=== PATIENT | female | born 1940 | race Caucasian/White ===

== ENCOUNTER → 2017-09-07 | Outpatient (CLI) | payer MEDICARE ==
[~2017-09-07] MED LIST: ALBU8.5H8 IH; AMOX875T2 PO; ATEN50TA PO; AZAT50TA PO; CLIN300C9 PO; DENO60DI SQ; GABA-531 PO; LACT1CAP58 PO; LOSA1TAB12 PO; PRED20TA3 PO; PYRI60TA PO; TORS5TAB12 PO; TRAM50TA4 PO
== END | disposition home or self-care (01) ==
LOC: OIH 09:22
PROVIDERS: ATTEND Family Medicine
DX: K44.9 Diaphragmatic hernia without obstruction or gangrene (principal); K57.90 Diverticulosis of intestine, part unspecified, without perforation or abscess without bleeding; M47.895 Other spondylosis, thoracolumbar region; Z90.49 Acquired absence of other specified parts of digestive tract
CPT/HCPCS: 74150

== ENCOUNTER → 2018-08-09 | Outpatient (CLI) | payer MEDICARE | END | disposition home or self-care (01) | LOC: OIH 13:52 | PROVIDERS: ATTEND Family Medicine | DX: R06.00 Dyspnea, unspecified (principal); R05 Cough; M47.816 Spondylosis without myelopathy or radiculopathy, lumbar region | CPT/HCPCS: 71046 ==

== ENCOUNTER → 2018-09-20 | Outpatient (CLI) | payer MEDICARE ==
[~2018-09-20] MED LIST changes: +ALPR0.25 PO; +APIX5TAB PO; +DILT240C46 PO; +FURO20TA4 PO; +IRON PO; +MVI PO; +PANT40TA25 PO
== END | disposition home or self-care (01) ==
LOC: SHCH 13:33
PROVIDERS: ATTEND Internal Medicine Cardiovascular Disease
DX: I65.23 Occlusion and stenosis of bilateral carotid arteries (principal)
CPT/HCPCS: 93880

== ENCOUNTER 2019-01-01 07:57 | Observation (INO) | payer MEDICARE ==
[2018-12-29 08:41] VITALS: BP 174/56
[2018-12-29 08:53] LABS: BASOPHILS % (AUTO) 1.3 % (0.0-5.0); EOSINOPHILS % (AUTO) 3.4 % (0.0-8.0); HEMATOCRIT 35.4 % (36-48); LYMPHOCYTES % (AUTO) 15.7 % (21.0-51.0); MEAN CORPUSCULAR HEMOGLOBIN 30.3 pg (27.0-33.0); MEAN CORPUSCULAR HGB CONC 32.8 g/dL (32.0-36.0); MEAN CORPUSCULAR VOLUME 92.4 fL (79-99); MONOCYTES % (AUTO) 10.9 % (3.0-13.0); NEUTROPHILS % (AUTO) 68.7 % (40.0-77.0); PLATELET COUNT (AUTO) 179 K/uL (130-400); RED BLOOD CELL COUNT(AUTO) 3.83 MIL/uL (4.00-5.50); WHITE BLOOD COUNT (AUTO) 7.2 K/uL (4.8-10.8)
[2018-12-29 09:01] LABS: CREATININE 1.1 mg/dL (0.5-1.5); POTASSIUM 3.9 mmol/L (3.5-5.1)
--- NOTE | 2018-12-29 09:10 | NUR ---
PER PATIENT SHE IS CONCERNED FOR ANESTHESIA BEING USED DUE TO MIASTINA GRAVIS AND CALLED PAYAL OLIVER OF DR. HAWKINS. PER PAYAL OLIVER. LOCAL ANESTHESIA WILL BE USED. PT IS ALLERGIC TO LIDOCAINE PER ISAMEL THEY WILL USE ANOTHER MEDICATION FOR PROCEDURE. ELIQUIS WAS PUT ON HOLD FOR 48 HOURS PRIOR TO PROCEDURE PER PAYAL OLIVER. PT WAS INFORMED SHE VERBALIZED UNDERSTANDING.
[2018-12-29 09:18] LABS: INR 0.98 (0.85-1.15); PARTIAL THROMBOPLASTIN TIME 28.8 SEC (26.3-35.5); PROTHROMBIN TIME 10.3 SEC (9.6-11.6)
[~2019-01-01] VITALS: Ht 154.9 cm; Wt 106.7 kg
[2019-01-01] VITALS (25 sets, daily range): BP systolic 109–168; BP diastolic 45–75
[~2019-01-01 07:57] MED LIST changes: -ALBU8.5H8 IH; -AMOX875T2 PO; +APIX2.5T PO; -ATEN50TA PO; -AZAT50TA PO; -CLIN300C9 PO; -DENO60DI SQ; -GABA-531 PO; -IRON PO; -LACT1CAP58 PO; +LISI-617 PO; -LOSA1TAB12 PO; +MAGN400T25 PO; +METO-391 PO; +OMEGA OIL PO; -PRED20TA3 PO; -TORS5TAB12 PO; -TRAM50TA4 PO; +UBID100C10 PO; +[UNRECOGNIZED DRUG - OTHER] PO
[2019-01-01] MEDS ORDERED: SODIUM CHLORIDE 0.9% 1000ML 1,000 ML IV ONE (08:05)
[2019-01-01] MEDS ORDERED: APIX5TAB PO (08:31)
[2019-01-01] MEDS ORDERED: PYRI60TA PO (08:31)
[2019-01-01] MEDS ORDERED: CA/D1TAB3 PO (08:33)
--- NOTE | 2019-01-01 12:30 | NUR ---
ANESTHESIA DR. CALVO AND DR. Umer HAWKINS CAME TO EVALUATE PATIENT BEFORE PROCEDURE DUE TO COMPLICATIONS ALLERGIES TO LIDOCAINE, DUE TO PTS MYASTHENIA GRAVIS SENSITIVE TO ANY TYPE OF SEDATION OR ANESTHESIA.
[2019-01-01] MEDS ORDERED: BUPIVACAINE/PF 0.25% 30ML VIAL IJ ONE (12:39)
[2019-01-01] MEDS ORDERED: MEPERIDINE-PF 25 MG/ML SYG ONE (12:39)
[2019-01-01] MEDS ORDERED: MIDAZOLAM HCL 1 MG/ML 2ML VIAL ONE (12:39)
[2019-01-01] MEDS ORDERED: CEFAZOLIN SODIUM 1 GM VIAL ONE (12:39)
[2019-01-01] MEDS ORDERED: LIDOCAINE HCL 1% MDV 50ML VIAL ONE (12:40)
--- NOTE | 2019-01-01 12:45 | NUR ---
PROCEDURE PT TAKEN TO SINTER PRESS OPERATOR FOR PROCEDURE. PT AWAKE AND ALERT , FAMILY AT BEDSIDE.
[2019-01-01] MEDS ORDERED: PROPOFOL 1000 MG/100 ML 100 ML IV ONE (12:46)
[2019-01-01] MEDS ORDERED: FENTANYL CITRATE PF 50 MCG/1 ML 5ML AMP IV ONE (12:48)
[2019-01-01] MEDS ORDERED: MIDAZOLAM HCL 1 MG/ML 5ML VIAL ONE (12:48)
[2019-01-01] MEDS ORDERED: OCTYL 2-CYANOACRYLATE 1 EACH TP ONE (14:05)
[2019-01-01] MEDS ORDERED: ACETAMINOPHEN-CODEINE 300/30MG TAB PO PRN (14:30)
[2019-01-01] MEDS ORDERED: ALPRAZOLAM 0.25 MG TABLET PO PRN (14:30)
[2019-01-01] MEDS: ACETAMINOPHEN-CODEINE 300/30MG TAB PO PRN ×2 (18:15→23:57)
--- NOTE | 2019-01-01 18:15 | NUR ---
LATE ENTRY GAVE REPORT TO JAE BULL FROM 2ND FLOOR, NO CONCERNS VOICED
[2019-01-01] MEDS ORDERED: ACETAMINOPHEN 325 MG TAB PO PRN ×2 (19:15)
[2019-01-01] MEDS ORDERED: NITROGLYCERIN 0.4 MG SL TAB SL PRN (19:15)
[2019-01-01] MEDS: METOPROLOL TARTRATE 25 MG TAB PO SCH (21:51)
[2019-01-01] MEDS: CEFAZOLIN SODIUM 1 GM VIAL IVP SCH (21:51)
[2019-01-01] MEDS: PYRIDOSTIGMINE BROMIDE 60 MG TABLET PO SCH (21:51)
[2019-01-02] VITALS (8 sets, daily range): BP systolic 122–154; BP diastolic 58–80
--- NOTE | 2019-01-02 02:00 | NUR ---
PATIENT C/O NAUSEA X1. MEDICATED WITH ZOFRAN. DRESSING TO LEFT UPPER CHEST, CDI. PATIENT PACING IN 60S
[2019-01-02 03:53] LABS: BASOPHILS % (AUTO) 0.7 % (0.0-5.0); EOSINOPHILS % (AUTO) 2.5 % (0.0-8.0); HEMATOCRIT 31.7 % (36-48); MEAN CORPUSCULAR HEMOGLOBIN 30.9 pg (27.0-33.0); MEAN CORPUSCULAR HGB CONC 33.8 g/dL (32.0-36.0); MEAN CORPUSCULAR VOLUME 91.4 fL (79-99); MONOCYTES % (AUTO) 12.4 % (3.0-13.0); NEUTROPHILS % (AUTO) 69.4 % (40.0-77.0); PLATELET COUNT (AUTO) 161 K/uL (130-400); RED BLOOD CELL COUNT(AUTO) 3.47 MIL/uL (4.00-5.50); RED CELL DISTRIBUTION WIDTH 14.2 % (11.0-15.5)
[2019-01-02] MEDS: PYRIDOSTIGMINE BROMIDE 60 MG TABLET PO SCH ×4 (04:17→22:02)
[2019-01-02] MEDS: CEFAZOLIN SODIUM 1 GM VIAL IVP SCH (04:17)
[2019-01-02 04:18] LABS: ALBUMIN 2.8 g/dL (3.5-5.0); BILIRUBIN,TOTAL 0.5 mg/dL (0.2-1.0); MAGNESIUM 1.9 mg/dL (1.80-2.40); POTASSIUM 4.2 mmol/L (3.5-5.1); TOTAL PROTEIN, SERUM 6.4 g/dL (6.0-8.3)
[2019-01-02] MEDS: ACETAMINOPHEN-CODEINE 300/30MG TAB PO PRN (06:16)
--- NOTE | 2019-01-02 06:27 | NUR ---
PATIENT BEDREST UNTIL 629. LEFT ARM IN SLING. C/O PAIN TO SITE. MEDICATED WITH ORDERED PAIN MEDS X2. NO HEMATOMA TO SITE. SENSATION INTACT. RADIAL PULSES PALPABLE.
[2019-01-02] MEDS ORDERED: MULTIVITAMIN TABLET PO SCH (08:00)
[2019-01-02] MEDS: ONDANSETRON HCL 4 MG/2 ML VIAL IV PRN ×2 (08:02→17:38)
[2019-01-02] MEDS: PANTOPRAZOLE SODIUM 40 MG TABLET.DR PO SCH (08:09)
--- NOTE | 2019-01-02 08:38 | NUR ---
MRS WANG IS NAUSEATED AND VOMITING. I HAVE GIVEN HER ZOFRAN AND PROTONIX. WILL OBSERVE. PLACEDC BACK IN BED PER HER REQUEST. CXR DONE
[2019-01-02] MEDS ORDERED: DILTIAZEM HCL 120 MG CAP.SR.24H PO SCH (09:00)
--- NOTE | 2019-01-02 09:09 | NUR ---
EVE Muhammad met with pt who lives with her [phone]. Pt reports prior to admit she was independent of ADLS, uses walker, drives, no HH services. Seen by Dr Lima and has rx coverage. Pt denies dc needs. Plan is home at [place] Addendum: 01/02/19 at 0911 by JENNIE SHAFFER Amended: Links added.
[2019-01-02] MEDS: LISINOPRIL 5 MG TABLET PO SCH ×2 (09:22→16:10)
[2019-01-02] MEDS: METOPROLOL TARTRATE 25 MG TAB PO SCH ×2 (09:22→22:02)
--- NOTE | 2019-01-02 11:30 | NUR ---
PT HAS BEEN SEEN BY DR MEJÍA AND ESSENTIALLY CLEARED FOR DISCHARGE IF HER NAUSEA AND UPSET STOMACHE RESOLVES. IF NOT BETTER I WILL CALL DR LOCKETT
[2019-01-02] MEDS ORDERED: METHYLPREDNISOLONE SOD SUCC 125MG/2ML VIAL IVP SCH (12:45)
--- NOTE | 2019-01-02 12:45 | NUR ---
PT CONTINUES WITH GI DISTRESS- DR LOCKETT CALLED. WILL HOLD DC HOME FOR NOW. REFER TO ORDERS
[2019-01-02] MEDS ORDERED: MAGNESIUM OXIDE 400 MG TABLET PO SCH (16:00)
[2019-01-02] MEDS ORDERED: [UNRECOGNIZED DRUG - OTHER] PO SCH (16:00)
[2019-01-02] MEDS ORDERED: ***HM***(Ubidecarenone (Coq-10) 100 MG) PO SCH (16:00)
[2019-01-02] MEDS ORDERED: CALCIUM 600 + VITAMIN D 400 TABLET PO SCH (16:00)
--- NOTE | 2019-01-02 17:43 | NUR ---
PT CONTINUES WITH N/V X 1 -MOSTLY HER DINNER
--- NOTE | 2019-01-02 18:47 | NUR ---
IV TO LEFT HAND IS SMALL CALIBER AND IS PAINFUL WHEN FLUSHED. NO EDEMA OR SWELLING WHEN FLUSHED WITH NS. PT REFUSES RESTART
--- NOTE | 2019-01-02 19:20 | NUR ---
HAND OFF REPORT GIVEN TO ABRAN BULL
[2019-01-02] MEDS ORDERED: APIXABAN 2.5 MG TABLET PO SCH (21:00)
[2019-01-03] MEDS: ONDANSETRON HCL 4 MG/2 ML VIAL IV PRN (01:46)
[2019-01-03] MEDS: PYRIDOSTIGMINE BROMIDE 60 MG TABLET PO SCH (04:00)
--- NOTE | 2019-01-03 04:11 | NUR ---
PATIENT REFUSED 0400 [address]
[2019-01-03 04:33] VITALS: BP 135/59
--- NOTE | 2019-01-03 06:30 | NUR ---
D/C per Dr Lima
[2019-01-03] MEDS: PANTOPRAZOLE SODIUM 40 MG TABLET.DR PO SCH (06:49)
[2019-01-03 07:00] VITALS: BP 159/68
[2019-01-03] MEDS ORDERED: APIXABAN 5 MG TABLET PO SCH (07:30)
--- NOTE | 2019-01-03 08:00 | NUR ---
DISCHARGE PT AMBULATING AROUND ROOM, DENIES PAIN, SOB, NAUSEA. LEFT SHOULDER DRESSING DRY, INTACT AND SECURED WITH ARM SLING, GAIT STEADY AND STRONG WITH STAND BY ASSIST, PIV REMOVED AND INTACT, DISCHARGED HOME TO FAMILY VEHICLE VIA WHEELCHAIR.
[2019-01-03] MEDS ORDERED: FUROSEMIDE 20 MG TABLET PO SCH (09:00)
== END 2019-01-03 08:05 | disposition home or self-care (01) ==
LOC: DAH 07:57 → DAHIP 07:58 → 2DH 18:15
PROVIDERS: ADMIT Internal Medicine; ATTEND Internal Medicine
DX: I49.5 Sick sinus syndrome (principal); I10 Essential (primary) hypertension; I48.0 Paroxysmal atrial fibrillation; G70.00 Myasthenia gravis without (acute) exacerbation; I35.0 Nonrheumatic aortic (valve) stenosis; I44.0 Atrioventricular block, first degree; K21.9 Gastro-esophageal reflux disease without esophagitis; I25.10 Atherosclerotic heart disease of native coronary artery without angina pectoris; Z79.01 Long term (current) use of anticoagulants; Z82.0 Family history of epilepsy and other diseases of the nervous system; Z82.49 Family history of ischemic heart disease and other diseases of the circulatory system; Z83.2 Family history of diseases of the blood and blood-forming organs and certain disorders involving the immune mechanism; Z95.0 Presence of cardiac pacemaker; Z96.643 Presence of artificial hip joint, bilateral; Z96.651 Presence of right artificial knee joint
CPT/HCPCS: 33208; 36415 ×2; 71045; 80048; 80053; 83735; 85025 ×2; 85610; 85730; 93005 ×2; 96374; 96375; 96376 ×2; A4606; C1785; C1894; C1898 ×2; G0378 ×25; J0690 ×3; J2250; J2405 ×3; J2704; J2930; J3010; J3490 ×2; J7030; J2175

== ENCOUNTER 2019-05-23 07:33 | Emergency (ER) | payer MEDICARE ==
[~2019-05-23 07:33] MED LIST changes: -APIX2.5T PO; +CA/D1TAB3 PO
[2019-05-23 08:02] LABS: BASOPHILS % (AUTO) 0.9 % (0.0-5.0); EOSINOPHILS % (AUTO) 2.7 % (0.0-8.0); LYMPHOCYTES % (AUTO) 28.3 % (21.0-51.0); MEAN CORPUSCULAR HEMOGLOBIN 31.2 pg (27.0-33.0); MEAN CORPUSCULAR HGB CONC 33.4 g/dL (32.0-36.0); MEAN CORPUSCULAR VOLUME 93.3 fL (79-99); MONOCYTES % (AUTO) 11.8 % (3.0-13.0); NEUTROPHILS % (AUTO) 56.3 % (40.0-77.0); PLATELET COUNT (AUTO) 198 K/uL (130-400); RED BLOOD CELL COUNT(AUTO) 4.07 MIL/uL (4.00-5.50); RED CELL DISTRIBUTION WIDTH 12.8 % (11.0-15.5); WHITE BLOOD COUNT (AUTO) 7.2 K/uL (4.8-10.8)
[2019-05-23] MEDS ORDERED: ALBUTEROL SULFATE 0.083% 2.5 MG/3 ML INH IH ONE (08:03)
[2019-05-23 08:07] LABS: CREATININE 1.1 mg/dL (0.5-1.5); POTASSIUM 4.5 mmol/L (3.5-5.1)
[2019-05-23 08:14] LABS: ALBUMIN 3.4 g/dL (3.5-5.0); BILIRUBIN,TOTAL 0.5 mg/dL (0.2-1.0); TOTAL PROTEIN, SERUM 7.7 g/dL (6.0-8.3)
[2019-05-23 08:24] LABS: INR 0.98 (0.85-1.15); PARTIAL THROMBOPLASTIN TIME 25.2 SEC (26.3-35.5); PROTHROMBIN TIME 10.3 SEC (9.6-11.6)
[2019-05-23 08:36] LABS: B-TYPE NATRIURETIC PEPTIDE 345 pg/mL (0-100)
[2019-05-23] MEDS ORDERED: FUROSEMIDE 10 MG/ML 2ML VIAL ONE (08:50)
[2019-05-23] MEDS ORDERED: ASPIRIN 325 MG TABLET ONE (11:18)
[2019-05-23] MEDS ORDERED: MORPHINE SULFATE 4 MG/1ML SYG ONE (12:03)
[2019-05-23] MEDS ORDERED: ONDANSETRON HCL 4 MG/2 ML VIAL ONE (13:30)
[2019-05-23] MEDS ORDERED: SODIUM CHLORIDE 0.9% 50 ML IV ONE (13:51)
== END 2019-05-23 15:12 | disposition home or self-care (01) ==
LOC: EDH 07:33
DX: G70.00 Myasthenia gravis without (acute) exacerbation (principal); I10 Essential (primary) hypertension; R06.02 Shortness of breath; I48.91 Unspecified atrial fibrillation; Z88.1 Allergy status to other antibiotic agents; Z88.8 Allergy status to other drugs, medicaments and biological substances
CPT/HCPCS: 36415; 71045; 71275; 80053; 82550; 83880 ×2; 84484; 85025; 85378; 85610; 85730; 93005; 93970; 94640; 96374; 96375; 99285; J1940; J2270; J2405

== ENCOUNTER → 2019-07-18 | Outpatient (CLI) | payer MEDICARE | END | disposition home or self-care (01) | LOC: SHCH 07-10 14:21 → RAH 08:30 | PROVIDERS: ATTEND Internal Medicine Cardiovascular Disease | DX: I08.3 Combined rheumatic disorders of mitral, aortic and tricuspid valves (principal); I49.5 Sick sinus syndrome | CPT/HCPCS: 93306 ==

== ENCOUNTER 2019-09-04 09:58 | Emergency (ER) | payer MEDICARE ==
[2019-09-04 11:05] LABS: BASOPHILS % (AUTO) 0.7 % (0.0-5.0); CREATININE 1.1 mg/dL (0.5-1.5); EOSINOPHILS % (AUTO) 1.5 % (0.0-8.0); HEMATOCRIT 35.8 % (36-48); LYMPHOCYTES % (AUTO) 17.2 % (21.0-51.0); MEAN CORPUSCULAR HEMOGLOBIN 30.3 pg (27.0-33.0); MEAN CORPUSCULAR HGB CONC 32.1 g/dL (32.0-36.0); MEAN CORPUSCULAR VOLUME 94.2 fL (79-99); MONOCYTES % (AUTO) 10.7 % (3.0-13.0); NEUTROPHILS % (AUTO) 69.6 % (40.0-77.0); PLATELET COUNT (AUTO) 193 K/uL (130-400); POTASSIUM 4.1 mmol/L (3.5-5.1); RED CELL DISTRIBUTION WIDTH 12.9 % (11.0-15.5); WHITE BLOOD COUNT (AUTO) 6.1 K/uL (4.8-10.8)
[2019-09-04 11:10] LABS: ALBUMIN 3.9 g/dL (3.5-5.0); BILIRUBIN,TOTAL 0.4 mg/dL (0.2-1.0); TOTAL PROTEIN, SERUM 7.7 g/dL (6.0-8.3)
[2019-09-04 11:38] LABS: B-TYPE NATRIURETIC PEPTIDE 289 pg/mL (0-100)
== END 2019-09-04 14:10 | disposition home or self-care (01) ==
LOC: EDH 09:58
DX: I11.0 Hypertensive heart disease with heart failure (principal); I50.20 Unspecified systolic (congestive) heart failure; R06.00 Dyspnea, unspecified; I48.91 Unspecified atrial fibrillation; Z85.828 Personal history of other malignant neoplasm of skin; Z88.1 Allergy status to other antibiotic agents; Z88.8 Allergy status to other drugs, medicaments and biological substances; Z90.49 Acquired absence of other specified parts of digestive tract; Z90.710 Acquired absence of both cervix and uterus; Z87.891 Personal history of nicotine dependence; Z96.643 Presence of artificial hip joint, bilateral
CPT/HCPCS: 36415; 71045; 80053; 83880; 84484; 85025; 93005

== ENCOUNTER 2019-10-10 06:23 | Day surgery (SDC) | payer MEDICARE ==
[2019-10-04 09:55] LABS: BASOPHILS % (AUTO) 0.8 % (0.0-5.0); EOSINOPHILS % (AUTO) 1.8 % (0.0-8.0); LYMPHOCYTES % (AUTO) 19.4 % (21.0-51.0); MEAN CORPUSCULAR HEMOGLOBIN 29.8 pg (27.0-33.0); MEAN CORPUSCULAR HGB CONC 31.1 g/dL (32.0-36.0); MEAN CORPUSCULAR VOLUME 95.9 fL (79-99); MONOCYTES % (AUTO) 10.7 % (3.0-13.0); NEUTROPHILS % (AUTO) 66.9 % (40.0-77.0); PLATELET COUNT (AUTO) 220 K/uL (130-400); RED BLOOD CELL COUNT(AUTO) 3.86 MIL/uL (4.00-5.50); RED CELL DISTRIBUTION WIDTH 13.4 % (11.0-15.5); WHITE BLOOD COUNT (AUTO) 7.6 K/uL (4.8-10.8)
[2019-10-04 10:08] LABS: INR 1.07 (0.85-1.15); PARTIAL THROMBOPLASTIN TIME 28.5 SEC (26.3-35.5); PROTHROMBIN TIME 11.2 SEC (9.6-11.6)
[2019-10-04 10:10] LABS: CREATININE 1.2 mg/dL (0.5-1.5); POTASSIUM 4.3 mmol/L (3.5-5.1)
[2019-10-04 10:18] VITALS: BP 147/68
[~2019-10-10] VITALS: Ht 157.5 cm; Wt 107.2 kg
[~2019-10-10 06:23] MED LIST changes: -ALPR0.25 PO; +AMIODARONE; -LISI-617 PO; -MAGN400T25 PO; -PANT40TA25 PO; +PANT40TA54 PO
[2019-10-10] MEDS ORDERED: SODIUM CHLORIDE 0.9% 1000ML 1,000 ML IV ONE (06:39)
[2019-10-10 06:40] VITALS: BP 134/72
--- NOTE | 2019-10-10 06:40 | NUR ---
PRE PROCEDURE PT ARRIVED VIA W/C, FRIEND AT SIDE. NO DISTRESS NOTED. PT MADE COMFORTABLE IN BED AND CONNECTED TO IDENTITY ACCESS MANAGEMENT ARCHITECT. PT CALL LIGHT WITHIN REACH AND BED IN LOWEST POSITION. PT INSTRUCTED TO CALL FOR ASSISTANCE Addendum: 10/10/19 at 0821 by BHUPINDER ADAMES RN RN PT HAS HEART MURMUR AND C/O NASAL DRAINAGE
--- NOTE | 2019-10-10 08:00 | NUR ---
ANESTHESIA ANESTHESIA HERE TO TOSHIA PT. COLEEN JAVED REVIEWED EKG AND WAS INFORMED OF LIDOCAINE ALLERGY. PER PT SHE IS NOT ALLERGIC TO LIDO BUT DOES NOT TAKE DUE TO MYASTHENIA GRAVIS. WILL WAIT FOR MD TO TOSHIA EKG
[2019-10-10] MEDS ORDERED: PROPOFOL 10 MG/ML 20ML VIAL IV ONE (08:11)
[2019-10-10] MEDS ORDERED: EPINEPHRINE 1 MG/ML AMPULE ONE (08:11)
[2019-10-10] MEDS ORDERED: ATROPINE SULFATE 0.1 MG/ML 10 ML SYG IVP ONE (08:11)
[2019-10-10] MEDS ORDERED: EPHEDRINE SULFATE 50 MG/ML AMPULE ONE (08:11)
[2019-10-10] MEDS ORDERED: LIDOCAINE HCL 2% VISCOUS 15 ML UDCUP ONE (09:20)
--- NOTE | 2019-10-10 09:28 | NUR ---
reeval dr coyne in to see pt. after reviewing ekg and eval pt the procedure was cancelled. pt converted to sinus rhythm and pt to continue home meds and follow up with caleb colindres at dr underwood office as scheduled. pt and relative voiced understanding
[2019-10-10 09:41] VITALS: BP 145/71
--- NOTE | 2019-10-10 09:55 | NUR ---
discharge pt taken out by lala mckeon rn via w/c in no distress.
== END 2019-10-10 09:55 | disposition home or self-care (01) ==
LOC: DAH 06:23
PROVIDERS: ATTEND Internal Medicine Cardiovascular Disease
DX: I48.19 Other persistent atrial fibrillation (principal); Z53.8 Procedure and treatment not carried out for other reasons; I44.7 Left bundle-branch block, unspecified; I10 Essential (primary) hypertension; G70.00 Myasthenia gravis without (acute) exacerbation; M06.9 Rheumatoid arthritis, unspecified; K21.9 Gastro-esophageal reflux disease without esophagitis; Z88.8 Allergy status to other drugs, medicaments and biological substances; Z88.1 Allergy status to other antibiotic agents; Z96.643 Presence of artificial hip joint, bilateral; Z96.651 Presence of right artificial knee joint; Z95.0 Presence of cardiac pacemaker; Z98.890 Other specified postprocedural states; Z91.048 Other nonmedicinal substance allergy status; Z79.899 Other long term (current) drug therapy; Z79.01 Long term (current) use of anticoagulants; Z82.49 Family history of ischemic heart disease and other diseases of the circulatory system
CPT/HCPCS: 36415; 80048; 85025; 85610; 85730; 93005; A4215; A4221; A4222; A4223 ×3; A4606; A4663; J0171; J0461; J2704; J3490; J7030

== ENCOUNTER → 2020-05-05 | Outpatient (CLI) | payer MEDICARE ==
[~2020-05-05] MED LIST changes: +ALBUTEROL SULFATE 0.083% 2.5 MG/3 ML INH IH ONE
== END | disposition home or self-care (01) ==
LOC: RESP 13:02
PROVIDERS: ATTEND Internal Medicine
DX: J44.9 Chronic obstructive pulmonary disease, unspecified (principal)
CPT/HCPCS: 94060; 94727; 94729

== ENCOUNTER → 2020-05-07 | Outpatient (CLI) | payer MEDICARE ==
[~2020-05-07] MED LIST changes: -ALBUTEROL SULFATE 0.083% 2.5 MG/3 ML INH IH ONE
== END | disposition home or self-care (01) ==
LOC: OIH 13:40
PROVIDERS: ATTEND Internal Medicine
DX: J44.9 Chronic obstructive pulmonary disease, unspecified (principal); R91.8 Other nonspecific abnormal finding of lung field
CPT/HCPCS: 71046

== ENCOUNTER → 2020-05-26 | Outpatient (CLI) | payer MEDICARE | END | disposition home or self-care (01) | LOC: SHCH 12:56 | PROVIDERS: ATTEND Internal Medicine Cardiovascular Disease | DX: I08.1 Rheumatic disorders of both mitral and tricuspid valves (principal) | CPT/HCPCS: 93306; 93356 ==

== ENCOUNTER 2021-05-04 11:13 | Inpatient (IN) | payer MEDICARE ==
[~2021-05-04] VITALS: Ht 157.5 cm; Wt 102.8 kg
[~2021-05-04 11:13] MED LIST changes: +ALPR0.255 PO; -AMIODARONE; -CA/D1TAB3 PO; +CALC-1009 PO; +FIBER PO; -FURO20TA4 PO; +FURO40TA5 PO; +IRON PO; -METO-391 PO; +METO-408 PO; +MVIT PO; -OMEGA OIL PO; +POTA99TA26 PO; -UBID100C10 PO; -[UNRECOGNIZED DRUG - OTHER] PO
[2021-05-04 11:43] LABS: BASOPHILS % (AUTO) 0.5 % (0.0-5.0); EOSINOPHILS % (AUTO) 0.2 % (0.0-8.0); HEMATOCRIT 24.4 % (36-48); LYMPHOCYTES % (AUTO) 16.5 % (21.0-51.0); MEAN CORPUSCULAR HEMOGLOBIN 31.1 pg (27.0-33.0); MEAN CORPUSCULAR HGB CONC 30.3 g/dL (32.0-36.0); MEAN CORPUSCULAR VOLUME 102.5 fL (79-99); NEUTROPHILS % (AUTO) 71.9 % (40.0-77.0); PLATELET COUNT (AUTO) 261 K/uL (130-400); RED BLOOD CELL COUNT(AUTO) 2.38 MIL/uL (4.00-5.50); RED CELL DISTRIBUTION WIDTH 15.1 % (11.0-15.5); WHITE BLOOD COUNT (AUTO) 12.5 K/uL (4.8-10.8)
[2021-05-04 11:46] LABS: CREATININE 1.6 mg/dL (0.5-1.5)
[2021-05-04 11:56] LABS: B-TYPE NATRIURETIC PEPTIDE 1470 pg/mL (0-100); BILIRUBIN,TOTAL 0.9 mg/dL (0.2-1.0); TOTAL PROTEIN, SERUM 7.7 g/dL (6.0-8.3)
[2021-05-04 12:03] LABS: ABG BASE EXCESS 3.5 mmol/L (-2.0-3.0); ABG OXYGEN SATURATION 99.4 % (95.0-99.0); ABG PCO2 74 mmHg (32-45)
[2021-05-04 12:27] LABS: ALBUMIN 2.9 g/dL (3.5-5.0)
[2021-05-04] MEDS: FUROSEMIDE 40MG VIAL IV SCH ×2 (14:23→21:41)
[2021-05-04] MEDS: APIXABAN 5 MG TABLET PO SCH (21:41)
[2021-05-04] MEDS: METOPROLOL SUCCINATE 50 MG TAB.SR.24H PO SCH (21:41)
[2021-05-04] MEDS: ALPRAZOLAM 0.25 MG TABLET PO SCH (21:41)
[2021-05-04] MEDS: PYRIDOSTIGMINE BROMIDE 60 MG TABLET PO SCH (21:41)
[2021-05-05 00:05] VITALS: BP 139/76
[2021-05-05 04:28] VITALS: BP 122/60
[2021-05-05] MEDS: FUROSEMIDE 40MG VIAL IV SCH ×3 (05:12→21:12)
[2021-05-05 06:19] LABS: BASOPHILS % (AUTO) 0.3 % (0.0-5.0); EOSINOPHILS % (AUTO) 0.9 % (0.0-8.0); HEMATOCRIT 23.7 % (36-48); LYMPHOCYTES % (AUTO) 16.4 % (21.0-51.0); MEAN CORPUSCULAR HEMOGLOBIN 30.5 pg (27.0-33.0); MEAN CORPUSCULAR HGB CONC 28.7 g/dL (32.0-36.0); MEAN CORPUSCULAR VOLUME 106.3 fL (79-99); MONOCYTES % (AUTO) 12.9 % (3.0-13.0); NEUTROPHILS % (AUTO) 68.8 % (40.0-77.0); PLATELET COUNT (AUTO) 200 K/uL (130-400); RED BLOOD CELL COUNT(AUTO) 2.23 MIL/uL (4.00-5.50)
[2021-05-05 06:43] LABS: ALBUMIN 2.5 g/dL (3.5-5.0); BILIRUBIN,TOTAL 0.6 mg/dL (0.2-1.0); CREATININE 1.3 mg/dL (0.5-1.5); POTASSIUM 3.8 mmol/L (3.5-5.1); TOTAL PROTEIN, SERUM 6.9 g/dL (6.0-8.3)
[2021-05-05 08:00] VITALS: BP 107/61
[2021-05-05] MEDS ORDERED: 0.9% NACL 250ML 250 ML ONE (08:01)
[2021-05-05] MEDS: CEFEPIME HCL 2 GM VIAL IVP SCH ×2 (08:22→21:05)
[2021-05-05 08:28] LABS: ABG BASE EXCESS 6.9 mmol/L (-2.0-3.0); ABG HCO3 33.6 mmol/L (21.0-28.0); ABG OXYGEN SATURATION 79.1 % (95.0-99.0); ABG PCO2 56 mmHg (32-45)
[2021-05-05 08:44] LABS: ABG BASE EXCESS 7.8 mmol/L (-2.0-3.0); ABG HCO3 35.5 mmol/L (21.0-28.0); ABG OXYGEN SATURATION 81.7 % (95.0-99.0); ABG PCO2 69 mmHg (32-45)
[2021-05-05] MEDS: DILTIAZEM 180MG SR CAP PO SCH (08:57)
[2021-05-05] MEDS: CA 600MG+VIT D 400 UNIT TAB 1 TAB TABLET PO SCH (08:57)
[2021-05-05] MEDS: APIXABAN 5 MG TABLET PO SCH ×2 (08:58→21:04)
[2021-05-05] MEDS: METOPROLOL SUCCINATE 50 MG TAB.SR.24H PO SCH ×2 (08:59→21:04)
[2021-05-05] MEDS: MULTIVITAMIN TABLET PO SCH (08:59)
[2021-05-05] MEDS ORDERED: MULTIVITAMIN TABLET PO SCH (09:00)
[2021-05-05] MEDS: FIBER PO SCH (09:00)
[2021-05-05] MEDS ORDERED: PANTOPRAZOLE 40 MG TAB DR PO SCH (09:00)
[2021-05-05] MEDS: POTASSIUM GLUCONATE 99 MG PO SCH (09:00)
[2021-05-05] MEDS: IRON 45 MG PO SCH (09:00)
[2021-05-05 12:00] VITALS: BP 102/52
[2021-05-05] MEDS: PYRIDOSTIGMINE BROMIDE 60 MG TABLET PO SCH ×3 (14:00→21:00)
[2021-05-05] MEDS: METRONIDAZOLE 500MG/100ML BAG 100 ML IVPB SCH ×2 (14:00→22:04)
[2021-05-05 16:00] VITALS: BP 108/47
[2021-05-05 19:10] VITALS: BP 110/55
[2021-05-05] MEDS: ALPRAZOLAM 0.25 MG TABLET PO SCH (21:03)
[2021-05-05] MEDS ORDERED: LACT1CAP69 PO (21:44)
[2021-05-05] MEDS ORDERED: ZOLP10TA2 PO (21:44)
[2021-05-05] MEDS ORDERED: ACET-66 PO (21:44)
[2021-05-05] MEDS ORDERED: LEVO25CA4 PO (21:44)
[2021-05-05] MEDS ORDERED: IPRA0.2S54 IH (21:47)
[2021-05-05] MEDS ORDERED: ACETAMINOPHEN 500 MG TABLET PO PRN (22:30)
[2021-05-05] MEDS: IPRATROPIUM 0.5 MG/2.5 ML INH IH SCH (22:32)
[2021-05-05 23:35] LABS: HEMATOCRIT 27.4 % (36-48)
[2021-05-05 23:48] LABS: BILIRUBIN,URINE Negative (NEGATIVE); COLOR,URINE Yellow (YELLOW); GLUCOSE, URINE (UA) Negative (NEGATIVE); KETONES,URINE Negative (NEGATIVE); LEUKOCYTE ESTERASE ,URINE Small (NEGATIVE); NITRATE,URINE Negative (NEGATIVE); OCCULT BLOOD,URINE Large (NEGATIVE); PROTEIN,URINE Negative (NEGATIVE); UROBILINOGEN,URINE 0.2 mg/dL (0.2-1.0)
[2021-05-05 23:50] LABS: APPEARANCE,URINE SLIGHTLY CLOUDY (CLEAR)
[2021-05-05 23:58] LABS: BACTERIA,URINE Rare /HPF (None Seen); SQUAMOUS EPITHELIAL CELL,UR Few /HPF (0-2)
[2021-05-06] VITALS (7 sets, daily range): BP systolic 96–161; BP diastolic 45–83
[2021-05-06] MEDS ORDERED: SOLU-MEDROL 125MG VIAL ONE (03:06)
[2021-05-06] MEDS: SOLU-MEDROL 125MG VIAL IVP ONE ×2 (03:07)
[2021-05-06] MEDS: ZOLPIDEM TARTRATE 5 MG TAB PO PRN ×2 (03:18→20:43)
[2021-05-06 05:10] LABS: HEMATOCRIT 27.8 % (36-48); MEAN CORPUSCULAR HEMOGLOBIN 30.1 pg (27.0-33.0); MEAN CORPUSCULAR HGB CONC 31.3 g/dL (32.0-36.0); MEAN CORPUSCULAR VOLUME 96.2 fL (79-99); RED BLOOD CELL COUNT(AUTO) 2.89 MIL/uL (4.00-5.50); RED CELL DISTRIBUTION WIDTH 18.9 % (11.0-15.5)
[2021-05-06 05:12] LABS: INR 1.16 (0.85-1.15); PROTHROMBIN TIME 12.5 SEC (9.6-11.6)
[2021-05-06 05:13] LABS: PARTIAL THROMBOPLASTIN TIME 27.7 SEC (26.3-35.5)
[2021-05-06 05:27] LABS: CREATININE 1.2 mg/dL (0.5-1.5); POTASSIUM 3.4 mmol/L (3.5-5.1); THYROID STIMULATING HORMONE 2.93 uIU/mL (0.36-3.74)
[2021-05-06] MEDS: FUROSEMIDE 40MG VIAL IV SCH ×3 (05:51→20:43)
[2021-05-06] MEDS: METRONIDAZOLE 500MG/100ML BAG 100 ML IVPB SCH ×3 (05:51→22:09)
[2021-05-06] MEDS ORDERED: LEVOTHYROXINE 25 MCG TABLET ONE (05:55)
[2021-05-06] MEDS: LEVOTHYROXINE 25 MCG TABLET PO SCH (06:03)
[2021-05-06] MEDS: IPRATROPIUM 0.5 MG/2.5 ML INH IH SCH ×3 (06:31→22:39)
[2021-05-06] MEDS ORDERED: KCL 20 MEQ ERTAB PO PRN (07:00)
[2021-05-06] MEDS ORDERED: COMPOUND IV MISC 1 EACH IVSOLN MISC PRN (07:00)
[2021-05-06] MEDS: MULTIVITAMIN TABLET PO SCH (08:00)
[2021-05-06] MEDS: POTASSIUM GLUCONATE 99 MG PO SCH (09:00)
[2021-05-06] MEDS ORDERED: SOLU-MEDROL 40MG VIAL IVP SCH (09:00)
[2021-05-06] MEDS: FIBER PO SCH (09:00)
[2021-05-06] MEDS: IRON 45 MG PO SCH (09:00)
[2021-05-06] MEDS: METOPROLOL SUCCINATE 50 MG TAB.SR.24H PO SCH ×2 (10:33→20:44)
[2021-05-06] MEDS: CEFEPIME HCL 2 GM VIAL IVP SCH ×2 (10:33→20:43)
[2021-05-06] MEDS: FUROSEMIDE 40 MG TABLET PO SCH ×2 (10:36→20:39)
[2021-05-06] MEDS: IRON SUCROSE COMPLEX 200 MG in 0.9%NACL 50ML 50 ML IV SCH (10:37)
[2021-05-06] MEDS: PANTOPRAZOLE 40 MG/VIAL IVP SCH ×2 (10:38→20:43)
[2021-05-06] MEDS: DILTIAZEM 180MG SR CAP PO SCH (10:40)
[2021-05-06] MEDS: CA 600MG+VIT D 400 UNIT TAB 1 TAB TABLET PO SCH (10:40)
[2021-05-06] MEDS: LACTOBACILLUS RHAMNOSUS GG 1 EACH CAP.SPRINK PO SCH (10:40)
[2021-05-06] MEDS: PYRIDOSTIGMINE BROMIDE 60 MG TABLET PO SCH ×3 (11:00→20:43)
[2021-05-06] MEDS ORDERED: PREDNISONE 20 MG TABLET PO SCH (11:58)
[2021-05-06] MEDS: ALPRAZOLAM 0.25 MG TABLET PO SCH (20:43)
[2021-05-06] MEDS: PREDNISONE 20 MG TABLET PO SCH (20:43)
[2021-05-06] MEDS ORDERED: VANCOMYCIN PROTOCOL PER PHARMACY IV SCH (21:00)
[2021-05-06] MEDS ORDERED: VANCOMYCIN 1.75GM/250ML NS IV ONE ×2 (21:00)
[2021-05-06] MEDS ORDERED: VANCOMYCIN 1G VIAL IVPB ONE (21:00)
[2021-05-06] MEDS: POTASSIUM CHLORIDE 10% ELIXIR 20 MEQ/15 ML UDCUP PO PRN (22:09)
[2021-05-07] MEDS: FUROSEMIDE 40MG VIAL IV SCH (02:13)
[2021-05-07 03:22] VITALS: BP 121/68
[2021-05-07 04:55] LABS: BASOPHILS % (AUTO) 0.3 % (0.0-5.0); HEMATOCRIT 30.5 % (36-48); MEAN CORPUSCULAR HEMOGLOBIN 29.5 pg (27.0-33.0); MEAN CORPUSCULAR HGB CONC 30.2 g/dL (32.0-36.0); MEAN CORPUSCULAR VOLUME 97.8 fL (79-99); MONOCYTES % (AUTO) 7.9 % (3.0-13.0); NEUTROPHILS % (AUTO) 80.1 % (40.0-77.0); PLATELET COUNT (AUTO) 229 K/uL (130-400); RED BLOOD CELL COUNT(AUTO) 3.12 MIL/uL (4.00-5.50); RED CELL DISTRIBUTION WIDTH 17.6 % (11.0-15.5); WHITE BLOOD COUNT (AUTO) 7.1 K/uL (4.8-10.8)
[2021-05-07 05:11] LABS: ALBUMIN 2.6 g/dL (3.5-5.0); BILIRUBIN,TOTAL 0.6 mg/dL (0.2-1.0); POTASSIUM 3.7 mmol/L (3.5-5.1); TOTAL PROTEIN, SERUM 7.3 g/dL (6.0-8.3)
[2021-05-07] MEDS: LEVOTHYROXINE 25 MCG TABLET PO SCH (05:27)
[2021-05-07] MEDS: METRONIDAZOLE 500MG/100ML BAG 100 ML IVPB SCH ×3 (05:27→22:24)
[2021-05-07] MEDS: IPRATROPIUM 0.5 MG/2.5 ML INH IH SCH ×3 (07:29→18:26)
[2021-05-07 08:00] VITALS: BP 113/63
[2021-05-07] MEDS: FIBER PO SCH (09:00)
[2021-05-07] MEDS: IRON 45 MG PO SCH (09:00)
[2021-05-07] MEDS: POTASSIUM GLUCONATE 99 MG PO SCH (09:00)
[2021-05-07] MEDS: VANCOMYCIN 750MG VIAL IVPB SCH (10:14)
[2021-05-07] MEDS: CA 600MG+VIT D 400 UNIT TAB 1 TAB TABLET PO SCH (10:14)
[2021-05-07] MEDS: PANTOPRAZOLE 40 MG/VIAL IVP SCH ×2 (10:14→19:55)
[2021-05-07] MEDS: DILTIAZEM 180MG SR CAP PO SCH (10:15)
[2021-05-07] MEDS: LACTOBACILLUS RHAMNOSUS GG 1 EACH CAP.SPRINK PO SCH (10:15)
[2021-05-07] MEDS: PREDNISONE 20 MG TABLET PO SCH ×2 (10:15→19:55)
[2021-05-07] MEDS: FUROSEMIDE 40 MG TABLET PO SCH ×2 (10:15→19:55)
[2021-05-07] MEDS: METOPROLOL SUCCINATE 50 MG TAB.SR.24H PO SCH ×2 (10:16→19:55)
[2021-05-07] MEDS: 0.9% NACL 250ML 250 ML IV SCH (10:16)
[2021-05-07] MEDS: MULTIVITAMIN TABLET PO SCH (10:25)
[2021-05-07] MEDS: IRON SUCROSE COMPLEX 200 MG in 0.9%NACL 50ML 50 ML IV SCH (10:25)
[2021-05-07] MEDS: PYRIDOSTIGMINE BROMIDE 60 MG TABLET PO SCH ×3 (10:26→19:55)
[2021-05-07 12:28] VITALS: BP 116/65
[2021-05-07] MEDS: CEFEPIME HCL 2 GM VIAL IVP SCH ×2 (15:13→19:33)
[2021-05-07 16:37] VITALS: BP 150/66
[2021-05-07] MEDS: POTASSIUM CHLORIDE 10% ELIXIR 20 MEQ/15 ML UDCUP PO PRN (17:35)
[2021-05-07 19:56] VITALS: BP 108/67
[2021-05-07] MEDS: ALPRAZOLAM 0.25 MG TABLET PO SCH (19:58)
[2021-05-07] MEDS: BALSAM PERU/CASTOR OIL 60 GM TUBE TP SCH (21:00)
[2021-05-07] MEDS: ZOLPIDEM TARTRATE 5 MG TAB PO PRN (22:24)
[2021-05-07 23:34] VITALS: BP 114/64
[2021-05-08 03:53] VITALS: BP 127/73
[2021-05-08 04:45] LABS: HEMATOCRIT 32.2 % (36-48); MEAN CORPUSCULAR HEMOGLOBIN 30.3 pg (27.0-33.0); MEAN CORPUSCULAR HGB CONC 30.4 g/dL (32.0-36.0); MEAN CORPUSCULAR VOLUME 99.7 fL (79-99); PLATELET COUNT (AUTO) 289 K/uL (130-400); RED BLOOD CELL COUNT(AUTO) 3.23 MIL/uL (4.00-5.50); RED CELL DISTRIBUTION WIDTH 17.1 % (11.0-15.5); WHITE BLOOD COUNT (AUTO) 12.9 K/uL (4.8-10.8)
[2021-05-08 05:29] LABS: % IRON SATURATION 97.3 % (22-44)
[2021-05-08] MEDS: METRONIDAZOLE 500MG/100ML BAG 100 ML IVPB SCH (05:46)
[2021-05-08 05:56] LABS: PHOSPHORUS 2.8 mg/dL (2.5-4.9); THYROID STIMULATING HORMONE 2.19 uIU/mL (0.36-3.74)
[2021-05-08] MEDS: LEVOTHYROXINE 25 MCG TABLET PO SCH (06:16)
[2021-05-08] MEDS: IPRATROPIUM 0.5 MG/2.5 ML INH IH SCH ×3 (06:19→23:09)
[2021-05-08 06:24] LABS: BAND NEUTROPHILS % (MANUAL) 4 % (0-2); LYMPHOCYTES % (MANUAL) 7 % (22-44); MAN.DIFF COMMENT-IMPRESSION MANUAL DIFFERENTIAL; MONOCYTES % (MANUAL) 5 % (2-9); PLATELET MORPHOLOGY COMMENT ADEQUATE; REACTIVE LYMPHOCYTES 3 % (0-0); SEGMENTED NEUTROPHILS % 81 % (40-70)
[2021-05-08 08:21] VITALS: BP 114/57
[2021-05-08] MEDS: FIBER PO SCH (09:00)
[2021-05-08] MEDS: POTASSIUM GLUCONATE 99 MG PO SCH (09:00)
[2021-05-08] MEDS: IRON 45 MG PO SCH (09:00)
[2021-05-08] MEDS: 0.9% NACL 250ML 250 ML IV SCH (09:00)
[2021-05-08] MEDS: CEFEPIME HCL 2 GM VIAL IVP SCH (09:58)
[2021-05-08] MEDS: PANTOPRAZOLE 40 MG/VIAL IVP SCH (09:58)
[2021-05-08] MEDS: VANCOMYCIN 750MG VIAL IVPB SCH (09:59)
[2021-05-08] MEDS: DILTIAZEM 180MG SR CAP PO SCH (09:59)
[2021-05-08] MEDS: Vitamin B Complex/Vit C/Folic Acid PO SCH (09:59)
[2021-05-08] MEDS: PYRIDOSTIGMINE BROMIDE 60 MG TABLET PO SCH ×3 (10:00→21:16)
[2021-05-08] MEDS: CA 600MG+VIT D 400 UNIT TAB 1 TAB TABLET PO SCH (10:01)
[2021-05-08] MEDS: METOPROLOL SUCCINATE 50 MG TAB.SR.24H PO SCH ×2 (10:01→21:16)
[2021-05-08] MEDS: FUROSEMIDE 40 MG TABLET PO SCH ×2 (10:02→11:56)
[2021-05-08] MEDS: PREDNISONE 20 MG TABLET PO SCH ×2 (10:02→21:16)
[2021-05-08] MEDS: LACTOBACILLUS RHAMNOSUS GG 1 EACH CAP.SPRINK PO SCH (10:02)
[2021-05-08] MEDS: MULTIVITAMIN TABLET PO SCH (10:09)
[2021-05-08] MEDS: IRON SUCROSE COMPLEX 200 MG in 0.9%NACL 50ML 50 ML IV SCH (10:10)
[2021-05-08] MEDS ORDERED: SULFAMETHOX-TMP DS 800/160 TAB PO SCH (11:30)
[2021-05-08 12:07] LABS: ABG BASE EXCESS 19.1 mmol/L (-2.0-3.0); ABG OXYGEN SATURATION 94.7 % (95.0-99.0); ABG PCO2 54 mmHg (32-45)
[2021-05-08 12:09] VITALS: BP 115/64
[2021-05-08] MEDS: FERROUS SULFATE 325 MG TABLET.DR PO SCH ×2 (12:44→21:16)
[2021-05-08 15:52] LABS: APPEARANCE,URINE Clear (CLEAR); BILIRUBIN,URINE Negative (NEGATIVE); COLOR,URINE Yellow (YELLOW); GLUCOSE, URINE (UA) Negative (NEGATIVE); KETONES,URINE Negative (NEGATIVE); LEUKOCYTE ESTERASE ,URINE Trace (NEGATIVE); NITRATE,URINE Negative (NEGATIVE); OCCULT BLOOD,URINE Negative (NEGATIVE); PROTEIN,URINE Trace mg/dL (NEGATIVE); UROBILINOGEN,URINE 0.2 mg/dL (0.2-1.0)
[2021-05-08 16:19] VITALS: BP 124/60
[2021-05-08 16:32] LABS: BACTERIA,URINE Few /HPF (None Seen); MUCUS,URINE Moderate LPF (None Seen); SQUAMOUS EPITHELIAL CELL,UR Few /HPF (0-2)
[2021-05-08 20:08] VITALS: BP 126/70
[2021-05-08] MEDS: BALSAM PERU/CASTOR OIL 60 GM TUBE TP SCH (21:00)
[2021-05-08] MEDS: ALPRAZOLAM 0.25 MG TABLET PO SCH (21:00)
[2021-05-08] MEDS: SULFAMETHOX-TMP DS 800/160 TAB PO SCH (21:16)
[2021-05-08] MEDS: ZOLPIDEM TARTRATE 5 MG TAB PO PRN (22:23)
[2021-05-09 00:12] VITALS: BP 122/60
[2021-05-09 04:12] VITALS: BP 121/68
[2021-05-09] MEDS: LEVOTHYROXINE 25 MCG TABLET PO SCH (05:28)
[2021-05-09 06:10] LABS: HEMATOCRIT 32.3 % (36-48); MEAN CORPUSCULAR HEMOGLOBIN 29.5 pg (27.0-33.0); MEAN CORPUSCULAR HGB CONC 29.4 g/dL (32.0-36.0); MEAN CORPUSCULAR VOLUME 100.3 fL (79-99); PLATELET COUNT (AUTO) 231 K/uL (130-400); RED BLOOD CELL COUNT(AUTO) 3.22 MIL/uL (4.00-5.50); RED CELL DISTRIBUTION WIDTH 16.9 % (11.0-15.5); WHITE BLOOD COUNT (AUTO) 11.5 K/uL (4.8-10.8)
[2021-05-09 06:34] LABS: ALBUMIN 2.8 g/dL (3.5-5.0); BILIRUBIN,DIRECT 0.1 mg/dL (0.0-0.3); BILIRUBIN,TOTAL 0.3 mg/dL (0.2-1.0); CREATININE 1.2 mg/dL (0.5-1.5); POTASSIUM 3.7 mmol/L (3.5-5.1); TOTAL PROTEIN, SERUM 7.3 g/dL (6.0-8.3)
[2021-05-09] MEDS: IPRATROPIUM 0.5 MG/2.5 ML INH IH SCH ×3 (07:17→18:39)
[2021-05-09 07:29] LABS: LYMPHOCYTES % (MANUAL) 10 % (22-44); MAN.DIFF COMMENT-IMPRESSION MANUAL DIFFERENTIAL; MONOCYTES % (MANUAL) 4 % (2-9); PLATELET MORPHOLOGY COMMENT ADEQUATE; SEGMENTED NEUTROPHILS % 86 % (40-70)
[2021-05-09 07:59] VITALS: BP 128/73
[2021-05-09] MEDS: IRON 45 MG PO SCH (09:00)
[2021-05-09] MEDS: 0.9% NACL 250ML 250 ML IV SCH (09:00)
[2021-05-09] MEDS: POTASSIUM GLUCONATE 99 MG PO SCH (09:00)
[2021-05-09] MEDS: FIBER PO SCH (09:00)
[2021-05-09] MEDS: CA 600MG+VIT D 400 UNIT TAB 1 TAB TABLET PO SCH (09:41)
[2021-05-09] MEDS: LACTOBACILLUS RHAMNOSUS GG 1 EACH CAP.SPRINK PO SCH (09:41)
[2021-05-09] MEDS: Vitamin B Complex/Vit C/Folic Acid PO SCH (09:42)
[2021-05-09] MEDS: FERROUS SULFATE 325 MG TABLET.DR PO SCH ×2 (09:42→20:36)
[2021-05-09] MEDS: DILTIAZEM 180MG SR CAP PO SCH (09:43)
[2021-05-09] MEDS: PYRIDOSTIGMINE BROMIDE 60 MG TABLET PO SCH ×3 (09:43→20:35)
[2021-05-09] MEDS: SULFAMETHOX-TMP DS 800/160 TAB PO SCH ×2 (09:43→20:35)
[2021-05-09] MEDS: PREDNISONE 20 MG TABLET PO SCH ×2 (09:43→20:36)
[2021-05-09] MEDS: METOPROLOL SUCCINATE 50 MG TAB.SR.24H PO SCH ×2 (09:44→20:35)
[2021-05-09] MEDS: FUROSEMIDE 40 MG TABLET PO SCH (09:45)
[2021-05-09] MEDS: MULTIVITAMIN TABLET PO SCH (09:52)
[2021-05-09 12:00] VITALS: BP 115/44
[2021-05-09 16:29] VITALS: BP 127/66
[2021-05-09] MEDS: BALSAM PERU/CASTOR OIL 60 GM TUBE TP SCH ×2 (17:03→20:40)
[2021-05-09] MEDS ORDERED: FUROSEMIDE 40MG VIAL IV ONE (19:30)
[2021-05-09 20:12] VITALS: BP 126/71
[2021-05-09] MEDS: ALPRAZOLAM 0.25 MG TABLET PO SCH (20:35)
[2021-05-09] MEDS: ZOLPIDEM TARTRATE 5 MG TAB PO PRN (22:25)
[2021-05-10 00:12] VITALS: BP 120/68
[2021-05-10] MEDS: IPRATROPIUM 0.5 MG/2.5 ML INH IH SCH ×3 (02:28→22:37)
[2021-05-10 04:12] VITALS: BP 130/67
[2021-05-10 06:24] LABS: BASOPHILS % (AUTO) 0.1 % (0.0-5.0); HEMATOCRIT 30.9 % (36-48); LYMPHOCYTES % (AUTO) 8.5 % (21.0-51.0); MEAN CORPUSCULAR HEMOGLOBIN 29.7 pg (27.0-33.0); MEAN CORPUSCULAR HGB CONC 29.4 g/dL (32.0-36.0); MONOCYTES % (AUTO) 8.6 % (3.0-13.0); NEUTROPHILS % (AUTO) 81.9 % (40.0-77.0); PLATELET COUNT (AUTO) 216 K/uL (130-400); RED BLOOD CELL COUNT(AUTO) 3.06 MIL/uL (4.00-5.50); WHITE BLOOD COUNT (AUTO) 9.4 K/uL (4.8-10.8)
[2021-05-10] MEDS: LEVOTHYROXINE 25 MCG TABLET PO SCH (06:37)
[2021-05-10 06:39] LABS: ALBUMIN 2.6 g/dL (3.5-5.0); BILIRUBIN,TOTAL 0.3 mg/dL (0.2-1.0); CREATININE 1.2 mg/dL (0.5-1.5); TOTAL PROTEIN, SERUM 6.5 g/dL (6.0-8.3)
[2021-05-10 08:00] VITALS: BP 127/64
[2021-05-10] MEDS: 0.9% NACL 250ML 250 ML IV SCH (09:00)
[2021-05-10] MEDS: POTASSIUM GLUCONATE 99 MG PO SCH (09:00)
[2021-05-10] MEDS: FIBER PO SCH (09:00)
[2021-05-10] MEDS: IRON 45 MG PO SCH (09:00)
[2021-05-10] MEDS: MULTIVITAMIN TABLET PO SCH (09:07)
[2021-05-10] MEDS: METOPROLOL SUCCINATE 50 MG TAB.SR.24H PO SCH ×2 (09:07→20:01)
[2021-05-10] MEDS: Vitamin B Complex/Vit C/Folic Acid PO SCH (09:08)
[2021-05-10] MEDS: LACTOBACILLUS RHAMNOSUS GG 1 EACH CAP.SPRINK PO SCH (09:08)
[2021-05-10] MEDS: FUROSEMIDE 40 MG TABLET PO SCH (09:09)
[2021-05-10] MEDS: PREDNISONE 20 MG TABLET PO SCH ×2 (09:09→20:01)
[2021-05-10] MEDS: FERROUS SULFATE 325 MG TABLET.DR PO SCH ×2 (09:09→20:01)
[2021-05-10] MEDS: PYRIDOSTIGMINE BROMIDE 60 MG TABLET PO SCH ×3 (09:09→20:03)
[2021-05-10] MEDS: CA 600MG+VIT D 400 UNIT TAB 1 TAB TABLET PO SCH (09:09)
[2021-05-10] MEDS: SULFAMETHOX-TMP DS 800/160 TAB PO SCH ×2 (09:09→20:01)
[2021-05-10] MEDS: DILTIAZEM 180MG SR CAP PO SCH (09:10)
[2021-05-10] MEDS: BALSAM PERU/CASTOR OIL 60 GM TUBE TP SCH ×2 (09:12→20:03)
[2021-05-10 09:56] LABS: ABG BASE EXCESS 15.7 mmol/L (-2.0-3.0); ABG HCO3 42.9 mmol/L (21.0-28.0); ABG OXYGEN SATURATION 96.7 % (95.0-99.0); ABG PCO2 61 mmHg (32-45)
[2021-05-10 12:00] VITALS: BP 117/45
[2021-05-10] MEDS ORDERED: FUROSEMIDE 40MG VIAL IV ONE (14:30)
[2021-05-10 16:00] VITALS: BP 111/56
[2021-05-10] MEDS: ALPRAZOLAM 0.25 MG TABLET PO SCH ×2 (20:01→20:09)
[2021-05-10 20:12] VITALS: BP 135/73
[2021-05-10] MEDS: ZOLPIDEM TARTRATE 5 MG TAB PO PRN (22:16)
[2021-05-11] VITALS (7 sets, daily range): BP systolic 105–131; BP diastolic 53–73
[2021-05-11 06:01] LABS: BASOPHILS % (AUTO) 0.1 % (0.0-5.0); HEMATOCRIT 31.4 % (36-48); LYMPHOCYTES % (AUTO) 10.2 % (21.0-51.0); MEAN CORPUSCULAR HEMOGLOBIN 30.2 pg (27.0-33.0); MEAN CORPUSCULAR HGB CONC 30.6 g/dL (32.0-36.0); MEAN CORPUSCULAR VOLUME 98.7 fL (79-99); MONOCYTES % (AUTO) 8.3 % (3.0-13.0); NEUTROPHILS % (AUTO) 80.7 % (40.0-77.0); PLATELET COUNT (AUTO) 215 K/uL (130-400); RED BLOOD CELL COUNT(AUTO) 3.18 MIL/uL (4.00-5.50); RED CELL DISTRIBUTION WIDTH 16.9 % (11.0-15.5); WHITE BLOOD COUNT (AUTO) 10.2 K/uL (4.8-10.8)
[2021-05-11] MEDS: IPRATROPIUM 0.5 MG/2.5 ML INH IH SCH ×3 (06:17→21:31)
[2021-05-11 06:19] LABS: ALBUMIN 2.8 g/dL (3.5-5.0); BILIRUBIN,TOTAL 0.3 mg/dL (0.2-1.0); CREATININE 1.3 mg/dL (0.5-1.5); MAGNESIUM 1.6 mg/dL (1.80-2.40); POTASSIUM 4.1 mmol/L (3.5-5.1); TOTAL PROTEIN, SERUM 6.8 g/dL (6.0-8.3)
[2021-05-11] MEDS: LEVOTHYROXINE 25 MCG TABLET PO SCH (06:36)
[2021-05-11] MEDS: FERROUS SULFATE 325 MG TABLET.DR PO SCH ×2 (08:29→20:04)
[2021-05-11] MEDS: DILTIAZEM 180MG SR CAP PO SCH (08:29)
[2021-05-11] MEDS: Vitamin B Complex/Vit C/Folic Acid PO SCH (08:29)
[2021-05-11] MEDS: PYRIDOSTIGMINE BROMIDE 60 MG TABLET PO SCH ×3 (08:29→20:06)
[2021-05-11] MEDS: PREDNISONE 20 MG TABLET PO SCH ×2 (08:30→20:04)
[2021-05-11] MEDS: SULFAMETHOX-TMP DS 800/160 TAB PO SCH ×2 (08:30→20:04)
[2021-05-11] MEDS: LACTOBACILLUS RHAMNOSUS GG 1 EACH CAP.SPRINK PO SCH (08:30)
[2021-05-11] MEDS: MULTIVITAMIN TABLET PO SCH (08:30)
[2021-05-11] MEDS: METOPROLOL SUCCINATE 50 MG TAB.SR.24H PO SCH ×2 (08:30→20:04)
[2021-05-11] MEDS: CA 600MG+VIT D 400 UNIT TAB 1 TAB TABLET PO SCH (08:31)
[2021-05-11] MEDS: IRON 45 MG PO SCH (08:34)
[2021-05-11] MEDS: FIBER PO SCH (08:34)
[2021-05-11] MEDS: POTASSIUM GLUCONATE 99 MG PO SCH (08:35)
[2021-05-11 08:52] LABS: ABG BASE EXCESS 12.8 mmol/L (-2.0-3.0); ABG OXYGEN SATURATION 96.9 % (95.0-99.0); ABG PCO2 55 mmHg (32-45)
[2021-05-11] MEDS: BALSAM PERU/CASTOR OIL 60 GM TUBE TP SCH ×2 (09:00→20:16)
[2021-05-11] MEDS: 0.9% NACL 250ML 250 ML IV SCH (09:00)
[2021-05-11] MEDS: FUROSEMIDE 40MG VIAL IV SCH ×2 (09:24→20:03)
[2021-05-11] MEDS: ALPRAZOLAM 0.25 MG TABLET PO SCH ×2 (20:04→20:16)
[2021-05-11] MEDS: ZOLPIDEM TARTRATE 5 MG TAB PO PRN (22:16)
[2021-05-12 04:29] VITALS: BP 129/74
[2021-05-12] MEDS: LEVOTHYROXINE 25 MCG TABLET PO SCH (06:21)
[2021-05-12] MEDS: IPRATROPIUM 0.5 MG/2.5 ML INH IH SCH ×2 (06:38→14:42)
[2021-05-12 06:40] LABS: CREATININE 1.4 mg/dL (0.5-1.5); POTASSIUM 4.1 mmol/L (3.5-5.1)
[2021-05-12 08:04] VITALS: BP 138/73
[2021-05-12] MEDS: POTASSIUM GLUCONATE 99 MG PO SCH (09:00)
[2021-05-12] MEDS: IRON 45 MG PO SCH (09:00)
[2021-05-12] MEDS: FIBER PO SCH (09:00)
[2021-05-12] MEDS: CA 600MG+VIT D 400 UNIT TAB 1 TAB TABLET PO SCH (09:20)
[2021-05-12] MEDS: Vitamin B Complex/Vit C/Folic Acid PO SCH (09:20)
[2021-05-12] MEDS: SULFAMETHOX-TMP DS 800/160 TAB PO SCH (09:20)
[2021-05-12] MEDS: FUROSEMIDE 40MG VIAL IV SCH (09:20)
[2021-05-12] MEDS: PREDNISONE 20 MG TABLET PO SCH (09:21)
[2021-05-12] MEDS: LACTOBACILLUS RHAMNOSUS GG 1 EACH CAP.SPRINK PO SCH (09:21)
[2021-05-12] MEDS: PYRIDOSTIGMINE BROMIDE 60 MG TABLET PO SCH (09:21)
[2021-05-12] MEDS: FERROUS SULFATE 325 MG TABLET.DR PO SCH (09:21)
[2021-05-12] MEDS: DILTIAZEM 180MG SR CAP PO SCH (09:21)
[2021-05-12] MEDS: METOPROLOL SUCCINATE 50 MG TAB.SR.24H PO SCH (09:21)
[2021-05-12] MEDS: MULTIVITAMIN TABLET PO SCH (09:25)
[2021-05-12] MEDS: BALSAM PERU/CASTOR OIL 60 GM TUBE TP SCH (09:26)
[2021-05-12 10:18] LABS: HEMATOCRIT 31.9 % (36-48); MEAN CORPUSCULAR HEMOGLOBIN 30.6 pg (27.0-33.0); MEAN CORPUSCULAR HGB CONC 30.7 g/dL (32.0-36.0); MEAN CORPUSCULAR VOLUME 99.7 fL (79-99); RED BLOOD CELL COUNT(AUTO) 3.2 MIL/uL (4.00-5.50); RED CELL DISTRIBUTION WIDTH 16.6 % (11.0-15.5); WHITE BLOOD COUNT (AUTO) 9.9 K/uL (4.8-10.8)
[2021-05-12 11:41] VITALS: BP 117/59
== END 2021-05-12 17:45 | disposition home health service (06) | DRG 193 ==
LOC: EDH 11:13 → OBSVTOIN 14:21 → EDHIP 14:21 → 3AH 23:21
PROVIDERS: ADMIT Internal Medicine; ATTEND Internal Medicine
PROC: 5A09357 Assistance with Respiratory Ventilation, Less than 24 Consecutive Hours, Continuous Positive Airway Pressure (ICD-10-PCS; 2021-05-04)
PROC: 5A09357 Assistance with Respiratory Ventilation, Less than 24 Consecutive Hours, Continuous Positive Airway Pressure (ICD-10-PCS; 2021-05-04)
PROC: 30233N1 Transfusion of Nonautologous Red Blood Cells into Peripheral Vein, Percutaneous Approach (ICD-10-PCS; principal; 2021-05-05)
PROC: 5A09357 Assistance with Respiratory Ventilation, Less than 24 Consecutive Hours, Continuous Positive Airway Pressure (ICD-10-PCS; 2021-05-05)
PROC: 5A09357 Assistance with Respiratory Ventilation, Less than 24 Consecutive Hours, Continuous Positive Airway Pressure (ICD-10-PCS; 2021-05-06)
PROC: 5A09357 Assistance with Respiratory Ventilation, Less than 24 Consecutive Hours, Continuous Positive Airway Pressure (ICD-10-PCS; 2021-05-07)
PROC: 5A09357 Assistance with Respiratory Ventilation, Less than 24 Consecutive Hours, Continuous Positive Airway Pressure (ICD-10-PCS; 2021-05-08)
PROC: 5A09357 Assistance with Respiratory Ventilation, Less than 24 Consecutive Hours, Continuous Positive Airway Pressure (ICD-10-PCS; 2021-05-09)
PROC: 5A09357 Assistance with Respiratory Ventilation, Less than 24 Consecutive Hours, Continuous Positive Airway Pressure (ICD-10-PCS; 2021-05-10)
DX: J15.9 Unspecified bacterial pneumonia (principal); J96.21 Acute and chronic respiratory failure with hypoxia; I50.23 Acute on chronic systolic (congestive) heart failure; J96.22 Acute and chronic respiratory failure with hypercapnia; N17.9 Acute kidney failure, unspecified; J44.1 Chronic obstructive pulmonary disease with (acute) exacerbation; I13.0 Hypertensive heart and chronic kidney disease with heart failure and stage 1 through stage 4 chronic kidney disease, or unspecified chronic kidney disease; E87.2 Acidosis; J44.0 Chronic obstructive pulmonary disease with (acute) lower respiratory infection; G70.00 Myasthenia gravis without (acute) exacerbation; L89.151 Pressure ulcer of sacral region, stage 1; D63.8 Anemia in other chronic diseases classified elsewhere; D75.89 Other specified diseases of blood and blood-forming organs; E66.01 Morbid (severe) obesity due to excess calories; G47.33 Obstructive sleep apnea (adult) (pediatric); I48.91 Unspecified atrial fibrillation; J84.10 Pulmonary fibrosis, unspecified; N18.31 Chronic kidney disease, stage 3a; R76.8 Other specified abnormal immunological findings in serum; Z96.651 Presence of right artificial knee joint; Z96.643 Presence of artificial hip joint, bilateral; Z95.0 Presence of cardiac pacemaker; Z91.19 Patient's noncompliance with other medical treatment and regimen; Z87.01 Personal history of pneumonia (recurrent); Z86.16 Personal history of COVID-19; Z83.2 Family history of diseases of the blood and blood-forming organs and certain disorders involving the immune mechanism; Z82.0 Family history of epilepsy and other diseases of the nervous system; Z82.49 Family history of ischemic heart disease and other diseases of the circulatory system; Z20.822 Contact with and (suspected) exposure to COVID-19
CPT/HCPCS: 36415; 36430; 36600; 71045; 71250; 80048; 80053; 80076; 80202; 81001; 82270; 82435; 82550; 82607; 82728; 82746; 82803; 82947; 82948; 83540; 83550; 83605; 83735; 83874; 83880; 83883; 84100; 84132; 84165; 84295; 84443; 84484; 84550; 85014; 85018; 85025; 85027; 85610; 85730; 86850; 86900; 86901; 86923; 87040; 87071; 87077; 87088; 87186; 87205; 87635; 87804; 93005; 94150; 94640; 94660; 94664; 97039; 99291; C9113; C9803; G0378; J0692; J1756; J1940; J2930; J3370; J3490; J7050; P9016

== ENCOUNTER → 2022-01-12 | Outpatient (CLI) | payer MEDICARE ==
[~2022-01-12] MED LIST changes: +ACET-66 PO; +IPRA0.2S54 IH; +LACT1CAP69 PO; +LEVO25CA4 PO; +ZOLP10TA2 PO
== END | disposition home or self-care (01) ==
LOC: SHCH 13:26
PROVIDERS: ATTEND Internal Medicine Cardiovascular Disease
DX: I08.0 Rheumatic disorders of both mitral and aortic valves (principal); I11.9 Hypertensive heart disease without heart failure; I48.20 Chronic atrial fibrillation, unspecified; E78.5 Hyperlipidemia, unspecified
CPT/HCPCS: 93306

== ENCOUNTER 2023-11-29 06:59 | Day surgery (SDC) | payer MEDICARE ==
[2023-11-25 12:27] VITALS: BP 127/39; PULSE 79; RESP 18
[2023-11-25 12:35] LABS: BASOPHILS # (AUTO) 0.04 K/uL (0.00-0.20); BASOPHILS % (AUTO) 0.6 % (0.0-5.0); EOSINOPHILS % (AUTO) 1.4 % (0.0-8.0); HEMATOCRIT 28.7 % (36-48); IMMATURE GRANULOCYTE ABSOLUTE 0.02 K/uL (0-1); MEAN CORPUSCULAR HEMOGLOBIN 32.7 pg (27.0-33.0); MEAN CORPUSCULAR VOLUME 105.5 fL (79-99); MONOCYTES # (AUTO) 0.8 K/uL (0.1-1.0); MONOCYTES % (AUTO) 10.4 % (3.0-13.0); NEUTROPHILS # (AUTO) 5.3 K/uL (1.8-7.7); NEUTROPHILS % (AUTO) 73.3 % (40.0-77.0); PLATELET COUNT (AUTO) 160 K/uL (130-400); RED BLOOD CELL COUNT(AUTO) 2.72 MIL/uL (4.00-5.50); RED CELL DISTRIBUTION WIDTH 13.3 % (11.0-15.5); WHITE BLOOD COUNT (AUTO) 7.2 K/uL (4.8-10.8)
[2023-11-25 12:45] LABS: CREATININE 1.2 mg/dL (0.5-1.0); POTASSIUM 4.2 mmol/L (3.5-5.1)
[2023-11-25 12:48] LABS: INR 0.95 (0.85-1.15); PROTHROMBIN TIME 11.2 SEC (9.6-11.6)
[2023-11-25 12:50] LABS: PARTIAL THROMBOPLASTIN TIME 28.2 SEC (26.3-35.5)
[2023-11-29] VITALS (19 sets, daily range): BP systolic 119–145; BP diastolic 53–78; PULSE 78–90; RESP 16–20
[~2023-11-29] VITALS: Ht 154.9 cm; Wt 91.2 kg
[~2023-11-29 06:59] MED LIST changes: -ACET-66 PO; +CYAN-106 PO; -DILT240C46 PO; +ESOM40CA54 PO; -FIBER PO; -FURO40TA5 PO; +FURO80TA3 PO; -IPRA0.2S54 IH; -IRON PO; +IRON18TA PO; -LACT1CAP69 PO; -LEVO25CA4 PO; -MVI PO; -MVIT PO; +ONDA-104 PO; -PANT40TA54 PO; -PYRI60TA PO; +PYRI60TA2 PO; -ZOLP10TA2 PO
[2023-11-29 07:40] LABS: BASOPHILS # (AUTO) 0.03 K/uL (0.00-0.20); BASOPHILS % (AUTO) 0.4 % (0.0-5.0); EOSINOPHILS # (AUTO) 0.13 K/uL (0.00-0.70); EOSINOPHILS % (AUTO) 1.6 % (0.0-8.0); HEMATOCRIT 27.5 % (36-48); IMMATURE GRANULOCYTE ABSOLUTE 0.02 K/uL (0-1); LYMPHOCYTES # (AUTO) 1.2 K/uL (1.0-4.8); LYMPHOCYTES % (AUTO) 15.2 % (21.0-51.0); MEAN CORPUSCULAR HEMOGLOBIN 32.5 pg (27.0-33.0); MEAN CORPUSCULAR HGB CONC 31.3 g/dL (32.0-36.0); MEAN CORPUSCULAR VOLUME 103.8 fL (79-99); MONOCYTES # (AUTO) 0.7 K/uL (0.1-1.0); MONOCYTES % (AUTO) 9.2 % (3.0-13.0); NEUTROPHILS # (AUTO) 5.8 K/uL (1.8-7.7); NEUTROPHILS % (AUTO) 73.3 % (40.0-77.0); PLATELET COUNT (AUTO) 137 K/uL (130-400); RED BLOOD CELL COUNT(AUTO) 2.65 MIL/uL (4.00-5.50); RED CELL DISTRIBUTION WIDTH 13.2 % (11.0-15.5)
[2023-11-29] MEDS: 0.9%NACL 1000ML 1,000 ML IV ONE (08:05)
[2023-11-29] MEDS ORDERED: PROPOFOL 1000 MG/100 ML 100 ML IV ONE (09:00)
[2023-11-29] MEDS ORDERED: KETAMINE 50MG/ML SYRINGE 50 MG/ML DISP.SYRIN ONE (09:01)
[2023-11-29] MEDS ORDERED: PHENYLEPHRINE HCL 10 MG/ML 1ML VIAL IV ONE (09:02)
[2023-11-29] MEDS ORDERED: ROCURONIUM BROMIDE 10MG/1ML 5ML VL ONE (09:02)
[2023-11-29] MEDS ORDERED: SUGAMMADEX SODIUM 200 MG/2 ML VIAL IV ONE (09:04)
[2023-11-29] MEDS ORDERED: CEFAZOLIN SODIUM 1 GM VIAL ONE (09:05)
[2023-11-29] MEDS ORDERED: IODIXANOL 320 MG/ML 100 ML VIAL ONE (09:58)
[2023-11-29 10:01] LABS: ABG BASE EXCESS 3.4 mmol/L (-2.0-3.0); ABG HCO3 26.1 mmol/L (21.0-28.0); ABG PCO2 32 mmHg (32-45); CARBON MONOXIDE 0.3; PO2, ARTERIAL BG 265.8 mmHg (83.0-108.0); VENT MODE, BG OR (ROOM AIR)
[2023-11-29] MEDS ORDERED: BACITRACIN 1 EACH PACKET TP ONE (11:17)
== END 2023-11-29 16:07 | disposition home or self-care (01) ==
LOC: DAH 06:59
PROVIDERS: ATTEND Internal Medicine Cardiovascular Disease
DX: I48.21 Permanent atrial fibrillation (principal); I42.8 Other cardiomyopathies; I35.0 Nonrheumatic aortic (valve) stenosis; I10 Essential (primary) hypertension; R00.1 Bradycardia, unspecified; Z91.048 Other nonmedicinal substance allergy status; Z91.040 Latex allergy status; Z88.8 Allergy status to other drugs, medicaments and biological substances; Z88.6 Allergy status to analgesic agent; Z88.5 Allergy status to narcotic agent; Z87.891 Personal history of nicotine dependence; Z82.49 Family history of ischemic heart disease and other diseases of the circulatory system; Z83.79 Family history of other diseases of the digestive system; Z79.899 Other long term (current) drug therapy; Z98.890 Other specified postprocedural states
CPT/HCPCS: 80048; 85025 ×2; 85610; 85730; 36415 ×2; 93005 ×2; 33229; 82947; 33225; 93619; 93650; 82435; 84132; 84295; 82803; 83605; 71045; 85018; C1894; C1900; C2621; C1732; A4649 ×2; C1760; J0690; J7030; J3490; J2704; J1644; J2371; Q9967; A4215; A4222; A4221; A4663; A4216; A4606; A4223 ×3; A6251; A6258

== ENCOUNTER 2024-02-08 05:54 | Day surgery (SDC) | payer MEDICARE ==
[2024-02-01 09:19] LABS: BASOPHILS # (AUTO) 0.04 K/uL (0.00-0.20); BASOPHILS % (AUTO) 0.6 % (0.0-5.0); EOSINOPHILS # (AUTO) 0.13 K/uL (0.00-0.70); EOSINOPHILS % (AUTO) 1.9 % (0.0-8.0); HEMATOCRIT 30.8 % (36-48); IMMATURE GRANULOCYTE ABSOLUTE 0.02 K/uL (0-1); LYMPHOCYTES # (AUTO) 1.1 K/uL (1.0-4.8); LYMPHOCYTES % (AUTO) 16.4 % (21.0-51.0); MEAN CORPUSCULAR HEMOGLOBIN 32.3 pg (27.0-33.0); MEAN CORPUSCULAR HGB CONC 30.5 g/dL (32.0-36.0); MEAN CORPUSCULAR VOLUME 105.8 fL (79-99); MONOCYTES # (AUTO) 0.6 K/uL (0.1-1.0); MONOCYTES % (AUTO) 8.7 % (3.0-13.0); NEUTROPHILS # (AUTO) 4.9 K/uL (1.8-7.7); NEUTROPHILS % (AUTO) 72.1 % (40.0-77.0); PLATELET COUNT (AUTO) 147 K/uL (130-400); RED BLOOD CELL COUNT(AUTO) 2.91 MIL/uL (4.00-5.50); RED CELL DISTRIBUTION WIDTH 13.2 % (11.0-15.5); WHITE BLOOD COUNT (AUTO) 6.8 K/uL (4.8-10.8)
[2024-02-01 09:26] VITALS: BP 114/56; PULSE 80; RESP 16
[2024-02-01 09:29] LABS: POTASSIUM 4.4 mmol/L (3.5-5.1)
[2024-02-01 09:33] LABS: INR 1.03 (0.85-1.15); PROTHROMBIN TIME 11.1 SEC (9.6-11.6)
[2024-02-01 09:34] LABS: PARTIAL THROMBOPLASTIN TIME 26.6 SEC (26.3-35.5)
[2024-02-01 09:43] LABS: B-TYPE NATRIURETIC PEPTIDE 261 pg/mL (0-100)
[2024-02-01 09:57] LABS: APPEARANCE,URINE CLOUDY (CLEAR); BILIRUBIN,URINE NEGATIVE (NEGATIVE); COLOR,URINE YELLOW (YELLOW); GLUCOSE, URINE (UA) NEGATIVE (NEGATIVE); KETONES,URINE NEGATIVE (NEGATIVE); LEUKOCYTE ESTERASE ,URINE 250 Leu/uL (NEGATIVE); NITRATE,URINE NEGATIVE (NEGATIVE); OCCULT BLOOD,URINE NEGATIVE (NEGATIVE); PH,URINE 5.5 (5.0-8.0); PROTEIN,URINE 10 mg/dL (NEGATIVE); UROBILINOGEN,URINE 0.2 mg/dL (0.2-1.0)
[2024-02-01 10:02] LABS: ADD UA MICROSCOPIC YES
[2024-02-01 10:04] LABS: BACTERIA,URINE MOD /HPF (None Seen); MUCUS,URINE RARE LPF (None Seen); SQUAMOUS EPITHELIAL CELL,UR MOD /HPF (0-2); WBC,URINE 26-50 /HPF (0-1)
[~2024-02-08] VITALS: Ht 154.9 cm; Wt 89.3 kg
[~2024-02-08 05:54] MED LIST changes: -ESOM40CA54 PO; +ESOM40CA66 PO
[2024-02-08] MEDS ORDERED: 0.9%NACL 1000ML 1,000 ML IV ONE (06:14)
[2024-02-08 06:25] LABS: BASOPHILS # (AUTO) 0.04 K/uL (0.00-0.20); BASOPHILS % (AUTO) 0.6 % (0.0-5.0); EOSINOPHILS # (AUTO) 0.12 K/uL (0.00-0.70); EOSINOPHILS % (AUTO) 1.8 % (0.0-8.0); HEMATOCRIT 32.5 % (36-48); IMMATURE GRANULOCYTE ABSOLUTE 0.03 K/uL (0-1); LYMPHOCYTES # (AUTO) 1.2 K/uL (1.0-4.8); LYMPHOCYTES % (AUTO) 18.1 % (21.0-51.0); MEAN CORPUSCULAR HEMOGLOBIN 33.1 pg (27.0-33.0); MEAN CORPUSCULAR HGB CONC 31.4 g/dL (32.0-36.0); MEAN CORPUSCULAR VOLUME 105.5 fL (79-99); MONOCYTES # (AUTO) 0.7 K/uL (0.1-1.0); MONOCYTES % (AUTO) 10.7 % (3.0-13.0); NEUTROPHILS # (AUTO) 4.5 K/uL (1.8-7.7); NEUTROPHILS % (AUTO) 68.3 % (40.0-77.0); PLATELET COUNT (AUTO) 134 K/uL (130-400); RED BLOOD CELL COUNT(AUTO) 3.08 MIL/uL (4.00-5.50); RED CELL DISTRIBUTION WIDTH 13.3 % (11.0-15.5); WHITE BLOOD COUNT (AUTO) 6.5 K/uL (4.8-10.8)
[2024-02-08 07:53] LABS: APPEARANCE,URINE CLOUDY (CLEAR); BILIRUBIN,URINE NEGATIVE (NEGATIVE); COLOR,URINE YELLOW (YELLOW); GLUCOSE, URINE (UA) NEGATIVE (NEGATIVE); KETONES,URINE NEGATIVE (NEGATIVE); LEUKOCYTE ESTERASE ,URINE 250 Leu/uL (NEGATIVE); NITRATE,URINE NEGATIVE (NEGATIVE); OCCULT BLOOD,URINE NEGATIVE (NEGATIVE); PROTEIN,URINE 10 mg/dL (NEGATIVE); UROBILINOGEN,URINE 0.2 mg/dL (0.2-1.0)
[2024-02-08 08:08] LABS: ADD UA MICROSCOPIC YES
[2024-02-08 08:16] LABS: BACTERIA,URINE MANY /HPF (None Seen); MUCUS,URINE RARE LPF (None Seen); SQUAMOUS EPITHELIAL CELL,UR MANY /HPF (0-2); WBC,URINE 26-50 /HPF (0-1)
== END 2024-02-08 06:45 | disposition home or self-care (01) ==
LOC: DAH 05:54
PROVIDERS: ATTEND Internal Medicine Cardiovascular Disease
DX: I25.10 Atherosclerotic heart disease of native coronary artery without angina pectoris (principal); Z53.8 Procedure and treatment not carried out for other reasons; Z79.01 Long term (current) use of anticoagulants; Z79.899 Other long term (current) drug therapy
CPT/HCPCS: 80048; 83880; 85025 ×2; 85610; 85730; 87086 ×4; 87186 ×2; 81001 ×2; 36415 ×2; 71045; 93005; J7030